=== PATIENT | male | born 1975 | race Caucasian/White ===

== ENCOUNTER 2024-05-05 13:35 | Emergency (ER) | payer MEDICARE, OTHER, SELFPAY ==
[2024-05-05 13:43] VITALS: BP 161/109
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
[2024-05-05 14:32] LABS: % Basophils 0.8 % (0-2); % Eosinophils 0.1 % (0-6); % Immature Granulocytes 0.3 % (0-0.5); % Monocytes 9.2 % (1.7-9.3); % Neutrophils 73.6 % (42.2-75.2); Absolute Basophils 0.1 10^3/uL (0-0.2); Absolute Lymphocytes 1.2 10^3/uL (1.2-3.4); Absolute Monocytes 0.7 10^3/uL (0.1-0.6); Absolute Neutrophils 5.5 10^3/uL (1.4-6.5); Hematocrit 47.9 % (39.0-52.0); Hemoglobin 16.9 g/dL (13.0-18.0); Mean Corp Hgb Conc. 35.3 g/dL (33.0-37.0); Mean Corpuscular Hgb 30.8 pg (27.0-31.0); Mean Corpuscular Volume 87.2 fL (80.0-94.0); Mean Platelet Volume 12.1 fL (7.4-10.4); Nucleated Red Blood Cells % 0 % (-); Platelet Count 177 10^3/uL (130-400); Red Blood Cell Count 5.49 10^6/uL (4.70-6.10); Red Cell Dist. Width 12.5 % (11.5-14.5); White Blood Cell Count 7.5 10^3/uL (4.8-10.8)
[2024-05-05 15:03] LABS: ALT (SGPT) 19 U/L (0-50); AST (SGOT) 23 U/L (17-59); Acetaminophen < 10 ug/ml (10-30); Albumin 4.9 g/dl (3.5-5.0); Alcohol None Detected; Alkaline Phosphatase 78 U/L (38-126); Blood Urea Nitrogen 17 mg/dl (9-20); Calcium 10.3 mg/dl (8.4-10.2); Carbon Dioxide 26 mmol/L (22-30); Chloride 100 mmol/L (98-107); Glucose 127 mg/dl (70-99); Potassium 4.1 mmol/L (3.5-5.1); Sodium 137 mmol/L (135-145); Total Bilirubin 0.5 mg/dl (0.2-1.3); Total Protein 7.8 g/dl (6.3-8.2); eGFR > 60.00
== END 2024-05-05 18:12 | disposition home or self-care (01) ==
LOC: EMR 13:35
PROVIDERS: EMERGENCY PHYSICIAN Emergency Medicine; FAMILY PHYSICIAN Family Medicine
DX: F20.9 Schizophrenia, unspecified (principal); F22 Delusional disorders; R03.0 Elevated blood-pressure reading, without diagnosis of hypertension; R47.01 Aphasia
CPT/HCPCS: 99283; 80053; 80143; 82077; 85025

== ENCOUNTER 2024-05-05 20:14 | Emergency (ER) | payer MEDICARE, OTHER, SELFPAY ==
[2024-05-05 20:18] VITALS: BP 170/110
--- NOTE | 2024-05-05 20:49 | ED.GENMED ---
History of Present Illness
General
Chief Complaint: Psychiatric Problem
Source: patient, records and family (Stepfather)
Exam Limitations: none
Time Seen by Provider: 05/05/24 20:25
Nursing documentation reviewed up to this point in time: agreed with
History of Present Illness
History of Present Illness:
48-year-old male with a past medical history of schizophrenia who presents to the emergency room with his stepfather for the second time today for worsening delusions and failure to care for himself. Patient has a long history of schizophrenia he
lives in a small apartment by himself and according to his stepfather does not leave the apartment due to severe paranoia. He apparently had been seeing a primary physician at some point in the past for long-acting injectable antipsychotics but
about 4 to 5 years ago he discontinued this and has not been seeing anyone or taking any medication since. He had been quite stable on antipsychotics but since then has had gradually worsening delusions. His main delusion is that someone is trying
to harm him. Patient confirms to me that he is very concerned someone is going to hurt him. He does not specify who he is worried about. He says that he does not want to hurt himself '100%, I will not do it.' He denies any drug or alcohol use.
His family is very concerned that he is escalating in his paranoia he is apparently too afraid to eat or drink and has lost weight about 20 pounds over the past few months. He was seen earlier and released after crisis assessment, mother petitioned
for a 302 this evening.
Past History
Past History
ED Past Medical History: Other (aphasia)
ED Past Surgical History: Orthopedic and Other (dental)
Social History
Tobacco: Non-smoker
Alcohol: None
Review of Systems
Review of Systems
All Other Systems: ROS reviewed and negative except as documented in HPI and ROS
Respiratory: Denies trouble breathing
Cardiac: Denies chest pain
ABD/GI: Denies abdominal pain
Psychiatric: Reports anxiety and other (Delusions); Denies suicidal
Phy Exam
Physical Exam
Physical Exam:
General: Unkempt/disheveled
HEENT: protecting airway
Neck: appears supple
CV: No evidence of cyanosis
Resp: No accessory muscle use
Abd: Non-distended
Extremities: No deformities
Neuro: Alert
Psych: Patient is pacing around the room, responding to internal stimuli; his speech is pressured and he has flights of ideas; his affect is paranoid his mood is anxious; he has poor insight and judgment
Skin: Intact
Scores
Heart Failure Risk
Heart Failure Risk Score: Not Applicable
Heart Score for Chest Pain Patients
STEMI patient?: Not applicable
Withdrawal Assessment of Alcohol
Withdrawal Assessment Completed?: Not applicable
Course
Orders/Labs/Results
Orders:
Orders
05/05/24 20:26
Crisis Consult Routine
Reason for Consult: delusions
Drug Screen, Urine [Urine Drug Abuse Screen] Urgent
05/05/24 22:25
Acetaminophen Urgent
Alcohol Urgent
Complete Blood Count/With Diff Urgent
Comprehensive Metabolic Panel Urgent
Salicylate Urgent
Abnormal Lab Results
05/05/24
22:25
MPV 12.1 H fL
(7.4-10.4)
Absolute Monos (auto) 0.7 H 10^3/uL
(0.1-0.6)
Lymphocytes % 20.2 L %
(20.5-51.1)
BUN 21 H mg/dl
(9-20)
Glucose 118 H mg/dl
(70-99)
Calcium 10.3 H mg/dl
(8.4-10.2)
Salicylates < 1.0 L mg/dl
(2.0-20.0)
Acetaminophen < 10 L ug/ml
(10-30)
05/05/24 22:25
05/05/24 22:25
Vital Signs
Initial and Last Documented VS:
Initial Vital Signs
Temp Pulse Resp BP Pulse Ox
36.6 C 104 26 170/110 98
05/05/24 20:18 05/05/24 20:18 05/05/24 20:18 05/05/24 20:18 05/05/24 20:18
Last Documented Vital Signs
Temp Pulse Resp BP Pulse Ox
36.6 C 108 20 160/104 96
05/05/24 20:18 05/06/24 00:32 05/06/24 00:32 05/06/24 00:32 05/06/24 00:32
MDM/Problems Addressed
Differential Diagnosis Includes:
Schizophrenia
MDM/Problems Addressed:
48-year-old male with a known history of schizophrenia presents with worsening delusions specifically delusions that someone is trying to harm him. He is not caring for himself, not leaving his apartment, not eating or drinking and has lost weight.
Seen earlier and released after crisis assessment mother position to 302 this evening as patient is unwilling to go for inpatient psychiatric treatment at this time voluntarily. In my judgment patient is not able to care for himself at this point
in time and I do think that involuntary psychiatric commitment is warranted at this point based on my observations. Will monitor here pending psychiatric placement.
Patient seen by telepsych and 302 was upheld. I did review screening labs no clinically significant abnormalities. Medically cleared for psychiatric placement�continue to monitor pending placement. Consult placed to psychiatry to follow while
awaiting placement.
Chronic conditions affecting care:
Schizophrenia
*Pulse Oximetry
Patient hypoxic: no
*Critical Care Note
Total Time (30-74mins, 75-104mins- exclusive of procedures): Not Applicable
Data Reviewed
Source: patient, records and family
Patient Management
Discussion with other providers: Other (Discussed with crisis staff)
Escalation/DeEscalation of care consider admission/obs:
Inpatient psychiatric treatment is indicated
ED Attending Note
-
Portions of this chart may have been created with voice recognition software.� Occasional wrong word or��sound alike� substitutions may have occurred due to the inherent limitations of voice recognition software.
Discharge Plan
Departure
Patient Disposition: Psych Facility
Date of Disposition: 05/05/24
Time of Disposition: 20:48
Discharge Problem:
Schizophrenia
Prescriptions:
No Action
No Current Medications
0
Referrals:
UNKNOWN - PT DOES,NOT KNOW [Family Provider] -
Interventions
Interventions:
*Risk Screen - Suicide Last Done: 05/05/24 20:18
*General Assessment Last Done: 05/05/24 22:23
*Neglect/Abuse Screening Last Done: 05/05/24 20:18
*ED COVID-19 Vaccine History Last Done: 05/05/24 22:23
ED-Psychological Assessment Last Done: 05/05/24 22:23
Discharge Date and Time
Print Language: SETSWANA
[2024-05-05 22:38] LABS: % Basophils 0.7 % (0-2); % Eosinophils 0.1 % (0-6); % Immature Granulocytes 0.2 % (0-0.5); % Lymphocytes 20.2 % (20.5-51.1); % Monocytes 8.7 % (1.7-9.3); % Neutrophils 70.1 % (42.2-75.2); Absolute Basophils 0.1 10^3/uL (0-0.2); Absolute Lymphocytes 1.7 10^3/uL (1.2-3.4); Absolute Monocytes 0.7 10^3/uL (0.1-0.6); Absolute Neutrophils 5.9 10^3/uL (1.4-6.5); Hematocrit 44.8 % (39.0-52.0); Hemoglobin 15.6 g/dL (13.0-18.0); Mean Corp Hgb Conc. 34.8 g/dL (33.0-37.0); Mean Corpuscular Hgb 30.3 pg (27.0-31.0); Mean Platelet Volume 12.1 fL (7.4-10.4); Nucleated Red Blood Cells % 0 % (-); Platelet Count 171 10^3/uL (130-400); Red Blood Cell Count 5.15 10^6/uL (4.70-6.10); Red Cell Dist. Width 12.6 % (11.5-14.5); White Blood Cell Count 8.4 10^3/uL (4.8-10.8)
[2024-05-05 22:52] LABS: ALT (SGPT) 19 U/L (0-50); AST (SGOT) 23 U/L (17-59); Acetaminophen < 10 ug/ml (10-30); Albumin 4.5 g/dl (3.5-5.0); Alkaline Phosphatase 68 U/L (38-126); Blood Urea Nitrogen 21 mg/dl (9-20); Calcium 10.3 mg/dl (8.4-10.2); Carbon Dioxide 28 mmol/L (22-30); Chloride 102 mmol/L (98-107); Glucose 118 mg/dl (70-99); Potassium 3.8 mmol/L (3.5-5.1); Salicylate < 1.0 mg/dl (2.0-20.0); Sodium 140 mmol/L (135-145); Total Bilirubin 0.4 mg/dl (0.2-1.3); Total Protein 7.2 g/dl (6.3-8.2); eGFR > 60.00
[2024-05-05 22:53] LABS: Alcohol None Detected
[2024-05-06 00:32] VITALS: BP 160/104
== END 2024-05-06 09:35 ==
LOC: EMR 20:14
PROVIDERS: CONSULT PHYSICIAN Psychiatry & Neurology Psychiatry; EMERGENCY PHYSICIAN Emergency Medicine
DX: F20.9 Schizophrenia, unspecified (principal); R63.4 Abnormal weight loss; Z60.2 Problems related to living alone; F41.9 Anxiety disorder, unspecified; F31.9 Bipolar disorder, unspecified; F32.A Depression, unspecified; F41.0 Panic disorder [episodic paroxysmal anxiety]; R47.01 Aphasia
CPT/HCPCS: 99285; 80053; 80143; 80179; 82077; 85025